=== PATIENT | male | born 1945 | race Two or more races ===

== ENCOUNTER → 2018-08-22 | Outpatient (REF) | payer OTHER ==
[~2018-08-22] MED LIST: BENAZEPRIL
== END ==
LOC: ZZSENDIN 12:55
PROVIDERS: ATTEND Family Medicine
DX: Z01.818 Encounter for other preprocedural examination (principal)
CPT/HCPCS: 81001

== ENCOUNTER 2018-09-30 00:22 | Observation (INO) | payer MEDICARE, OTHER ==
[2018-09-29 14:41] LABS: INR 0.98
[~2018-09-30] VITALS: Ht 167.6 cm; Wt 89.8 kg
[2018-09-30] VITALS (11 sets, daily range): BP systolic 113–148; BP diastolic 71–96
[~2018-09-30 00:22] MED LIST changes: +BENA20TA64 PO
--- NOTE | 2018-09-30 03:55 | LEVENE H&P ---
DATE OF ADMISSION: September 30, 2018 IDENTIFICATION/CHIEF COMPLAINT Tramaine is a 73-year-old gentleman with a history of a left knee tibial plateau fracture. He has gone on to develop severe post-traumatic arthritis. Surgery is indicated at this time to relieve symptoms after failure of nonoperative measures. PAST MEDICAL HISTORY Notable for hypercholesterolemia, hypertension, controlled on medication. ALLERGIES He has no known drug allergies. CURRENT MEDICATIONS 1. Simvastatin 20 mg p.o. daily. 2. Spironolactone 50 mg p.o. daily. 3. Carvedilol 12.5 mg p.o. daily. 4. Benazepril 40 mg p.o. daily. PAST SURGICAL HISTORY Notable for a left knee operation. He also has a history of a kidney artery stent bilaterally. FAMILY HISTORY Notable for a father with AK, a mother with diabetes, and a brother with cancer. SOCIAL HISTORY Notable for smoking a half a pack of cigarettes for about five years. He quit 30 years ago. He drinks alcohol occasionally, beer. He denies abuse. REVIEW OF SYSTEMS Noncontributory. PHYSICAL EXAMINATION GENERAL: This is a well-developed, well-nourished male who appears stated age. HEENT: He is normocephalic, atraumatic. NECK: Supple. LUNGS: Clear. HEART: Regular. ABDOMEN: Soft. ORTHOPEDIC: The left knee has effusion present. He has crepitus through range of motion. Slight valgus alignment is noted. His knee is stable. Extensor function is intact. Calves nontender. Neurovascular function is intact. Radiographs demonstrate advanced post-traumatic arthritis. ASSESSMENT Left knee end-stage degenerative joint disease, progressively painful and debilitating, refractory to conservative measures. PLAN Tramaine and I discussed the options again, including the option of ongoing conservative care and management, which is safe and reasonable, or the option of surgical treatment. Surgery will consist of a total knee arthroplasty. Nature of this procedure, risks, benefits, and the anticipated rehab course were reviewed, and he would like to proceed. All his questions were answered. Signed permit was placed in the chart. No guarantees were given or implied. MIREYA
[2018-09-30] MEDS ORDERED: PREGABALIN 75 MG CAPSULE PO ONE (06:30)
[2018-09-30] MEDS ORDERED: MIDAZOLAM 2 MG/2 ML VIAL IVP PRN (06:30)
[2018-09-30] MEDS ORDERED: FAMOTIDINE 20 MG TAB PO ONE (06:30)
[2018-09-30] MEDS ORDERED: ACETAMINOPHEN 500 MG TAB PO ONE (06:30)
[2018-09-30] MEDS ORDERED: LIDOCAINE/SOD BICARB 8.4% SYR ID ONE (06:30)
[2018-09-30] MEDS ORDERED: CELECOXIB 200 MG CAP PO ONE (06:30)
[2018-09-30] MEDS ORDERED: NORMOSOL R SOLN(*) 1000 ML BAG 1,000 ML IV PRN ×2 (06:30→13:45)
[2018-09-30] MEDS ORDERED: ceFAZolin(*) 2GM/D5W 50ML 50 ML IVPB ONE (07:30)
[2018-09-30] MEDS ORDERED: TRANEXAMIC AC 1000 MG/10ML SDV 1,000 MG in DEXTROSE 5% 50 ML BAG 50 ML IV ONE (07:30)
[2018-09-30] MEDS ORDERED: ROPIVACAINE/EPI/CLONIDINE/KET 50 ML SYRINGE INJ ONE (07:30)
[2018-09-30] MEDS ORDERED: fentaNYL CITR 100 MCG/2 ML AMP ONE (08:23)
[2018-09-30] MEDS ORDERED: DEXAMETHASONE SOD 4 MG/ML VIAL ONE (08:23)
[2018-09-30] MEDS ORDERED: ONDANSETRON 4 MG/2 ML VIAL ONE (08:23)
[2018-09-30] MEDS ORDERED: PROPOFOL EMUL(*) 10MG/ML 20 ML 20 ML ONE (08:23)
[2018-09-30] MEDS ORDERED: LIDOCAINE MPF 1% 5 ML VIAL ONE (08:23)
[2018-09-30] MEDS ORDERED: KETAMINE HCL-NS 50 MG/5 ML SYR ONE (08:24)
[2018-09-30] MEDS ORDERED: ePHEDrine 25 MG/5 ML DISP.SYR IVP ONE (08:24)
[2018-09-30] MEDS ORDERED: VANCOMYCIN 1 GM VIAL ONE (09:45)
[2018-09-30] MEDS ORDERED: ROCURONIUM BR 10 MG/ML 5 ML SY 5 ML ONE (10:06)
[2018-09-30] MEDS ORDERED: GLYCOPYRROLATE 0.2MG/ML 1 ML INJ ONE (10:17)
--- NOTE | 2018-09-30 13:22 | RADIOLOGY IMAGING REPORT ---
FAC[place] [facility] [place]IENT NAME: Tramaine Qiuros : 1945 MR: [id number] V: [id number] EXAM DATE: ORDERING PHYSICIAN: JONATHAN HOLLAND TECHNOLOGIST: Location: [facility] - [place] Patient: Tramaine Quiros : 1945 Visit/Account:[id number] Date of Sevice: 09/30/2018 KNEE LIMITED LEFT Indication: Postop TKA Comparison: None available Findings: There are postoperative changes from knee replacement. Three part TKA demonstrates good seating of t he components with neutral alignment. IMPRESSION: 1. Unremarkable postoperative appearance of left TKA Report Dictated By: Robert Salazar at 09/30/2018 1:15 PM Report E-Signed By: Robert Salazar at 09/30/2018 1:16 PM WSN:[email or web address]
[2018-09-30] MEDS ORDERED: FLUSH 10 ML SYR IVP PRN (13:45)
[2018-09-30] MEDS ORDERED: diphenhydrAMINE 25 MG CAP PO PRN (13:45)
[2018-09-30] MEDS ORDERED: ZOLPIDEM TARTRATE 5 MG TAB PO PRN (13:45)
[2018-09-30] MEDS ORDERED: ACETAMINOPHEN 325 MG TAB PO PRN (13:45)
[2018-09-30] MEDS ORDERED: MAGNESIUM HYDROXIDE* 30ML UDCP PO PRN (13:45)
[2018-09-30] MEDS ORDERED: BENZOCAINE/MENTHOL 1 EACH LOZG PO PRN (13:45)
[2018-09-30] MEDS ORDERED: PROMETHAZINE 25 MG/ML 1 ML AMP IVP PRN (13:45)
[2018-09-30] MEDS ORDERED: DIAZEPAM 5 MG TAB PO PRN (13:45)
[2018-09-30] MEDS ORDERED: BISACODYL 10 MG SUPP PR PRN (13:45)
[2018-09-30] MEDS ORDERED: diphenhydrAMINE 50 MG/ML VIAL IVP PRN (13:45)
--- NOTE | 2018-09-30 14:09 | OPERATIVE REPORT 1 ---
EVENT DATE: September 30, 2018 SURGEON: Dandre Rivera MD ANESTHESIOLOGIST: Preston Turner MD ANESTHESIA: General plus spinal. FIRER ELECTRIC LOCOMOTIVE: Patrice Lopez PA-C PREOPERATIVE DIAGNOSIS Left knee degenerative joint disease, posttraumatic. POSTOPERATIVE DIAGNOSIS Left knee degenerative joint disease, posttraumatic. PROCEDURE PERFORMED Left total knee arthroplasty. ESTIMATED BLOOD LOSS Minimal. DRAINS None. SPECIMENS None. COMPLICATIONS None apparent. TOURNIQUET TIME 44 minutes. IMPLANTS USED Mounika Triathlon knee system, 4 left PS femur, 5 standard tibial baseplate, 33 mm universal symmetric all polyethylene patella button, 13 mm PS tibial tray liner and polyethylene X3. INDICATIONS Tramaine is status post plateau fracture with chronic ORIF and subsequent hardware removal. He has gone on to develop severe posttraumatic arthritis, painful and debilitating and refractory to conservative measures. Surgery is indicated to relieve symptoms after failure of nonoperative measures. DESCRIPTION OF PROCEDURE The patient was taken to the operating room and placed supine on the operating table. Spinal block was administered by the anesthesiologist. General anesthesia was induced. Antibiotics and TXA were administered IV. The left lower extremity was prepped and draped in the usual sterile fashion for knee arthroplasty. The limb was exsanguinated with an Esmarch bandage. The tourniquet was inflated to 250 mmHg. A midline longitudinal incision was made and carried down through the skin and subcutaneous tissue to the extensor mechanism. A full-thickness flap was developed far enough medially to allow medial parapatellar arthrotomy to be performed. The patella was everted. The knee was brought into a flexed position. The fat pad, anterior horns of the menisci and cruciate ligaments were debrided. Subperiosteal release was initiated in titrated fashion at the anterior medial tibia. A step drill was used to enter the distal femur. A 10-inch long alignment guide was used to engage the isthmus. Cut was set for 5 degrees of valgus relative to the anatomic axis. A 10 mm resection block was applied and pinned. Cut was made with an oscillating saw. The AP sizing guide was applied to the distal femoral cut. The size 4 was optimal without risk of notching. The four-in-one cutting block was applied. Anterior, posterior, posterior chamfer and anterior chamfer cuts were made respectively. A PS block was applied and centered mediolateral and the bone was removed from the box. The trial femur has nice [id number] fit. Attention was turned to tibial preparation. The extramedullary guide was applied and positioned for varus, valgus, posterior slope and rotation. This was set to resect the appropriate bone amount. The block was pinned. Extramedullary alignment check was made and the cut was made with an oscillating saw. After osteophyte removal, gaps were balanced and symmetrical. No additional release is required. Size 5 baseplate provides optimum bony coverage without soft tissue overhang. This was inserted along with trial liner and trial femur. Knee cap was taken from a starting thickness of 23 to residual of 14 with patellar clamp and oscillating saw. The 33 provides optimal bony coverage without soft tissue overhang. Lug holes were drilled. The patella tracts nicely with a no-touch technique. Final tibial preparation consisted of ensuring appropriate rotational and translational position of the component. The box was reamed and the fin was punched. Surfaces were lavaged. A mix of polymethylmethacrylate was made and the components were cemented in a single stage. The cement was fully polymerized. The tourniquet was deflated and hemostasis was assured. 13 PS tibial tray liner fills up the gap ideally, allowing the knee to drop to full extension and providing optimal soft tissue tension and stability. The tray was lavaged and dried again. The actual liner was locked into the baseplate. The joint was reduced. The arthrotomy was closed in flexion with #2 Ethibond, subcutaneous tissue with 3-0 Vicryl and the skin with ZipLine closure. Xeroform was applied followed by a dry, sterile dressing and a compression wrap. The patient was awakened from the anesthesia and taken to the recovery room in stable condition, having tolerated the procedure well. Plan is for standard TKA rehab protocol. [facility]
[2018-09-30] MEDS ORDERED: BENA40TA53 PO (14:10)
[2018-09-30] MEDS ORDERED: SIMV-49 PO (14:10)
[2018-09-30] MEDS ORDERED: CARV12.578 PO (14:10)
[2018-09-30] MEDS ORDERED: SPIR25TA80 PO (14:10)
--- NOTE | 2018-09-30 14:24 | NUR ---
Physical Therapy Impression PT eval completed with family members present to assist in teaching with CPM use. Pt notes that B) LE's still feel numb and he would like PT to return later to attempt to stand at edge of bed. Physical Therapy Goals 1. Pt to be CGA/Min assist for bed mobility and supine to/from sit trnsfrs 2. Pt to be SBA/CGA for sit to/from stand transfers 3. Pt to amb x 100' with least restrictive device and SBA/CGA. 4. Pt to dionne up/down 4 steps with rail and SBA/CGA Patient's Goals
--- NOTE | 2018-09-30 15:34 | Hospitalist Progress Note ---
Subjective Progress Notes Subjective No cp/sob. He received 1500cc of crystalloid, TXA and dexamethasone intra-op. Physical Exam Vital Signs Date Time Temp Pulse Resp B/P (MAP) Pulse Ox O2 Delivery O2 Flow Rate FiO2 09/30/18 14:30 78 131/84 (100) 93 09/30/18 14:11 Nasal Cannula 2.0 09/30/18 13:50 98.4 16 General Appearance: Alert, Awake, No Acute Distress Cardiovascular: Regular Rate and Rhythm Respiratory: Clear to Auscultation Extremities: No Edema Assessment and Plan Problems: (1) Status post knee replacement Status: Acute Assessment & Plan: No CV/pulmonary issues after surgery. He denies a h/o of DV T/PE. He will be on ASA 325mg a day for 30 days after surgery for blood clot prevention. (2) HTN (hypertension) Status: Chronic Assessment & Plan: Continue chronic carvedilol, benazepril and spironolactone with parameters. He is supposed to take carvedilol twice daily, but admits to only taking it twice daily. Will give bid in the hospital. (3) Hyperlipemia Status: Chronic Assessment & Plan: Continue chronic simvastatin. Exam Sepsis Risk: No Definite Risk Problem Qualifiers (1) Status post knee replacement: Laterality: left Qualified Codes: Z96.652 - Presence of left artificial knee joint KVEIN GUPTA MD Sep 30, 2018 15:34
--- NOTE | 2018-09-30 16:11 | NUR ---
Physical Therapy Impression Pt completed ambulation to/from BR with use of FWW and CGA. Pt required Min/CGA for supine to/from sit and family members very agreeable to assist as needed. Pt would benefit from further therapy to address safety with use of crutches planned for home use, as well as education regarding progression with flexion using CPM. Physical Therapy Goals 1. Pt to be CGA/Min assist for bed mobility and supine to/from sit trnsfrs 2. Pt to be SBA/CGA for sit to/from stand transfers 3. Pt to amb x 100' with least restrictive device and SBA/CGA. 4. Pt to dionne up/down 4 steps with rail and SBA/CGA Patient's Goals
[2018-09-30] MEDS: CELECOXIB 200 MG CAP PO SCH (17:29)
[2018-09-30] MEDS: ceFAZolin(*) 1 GM VIAL 1 GM in NS(*) 0.9% 100 ML MINI-BAG 100 ML IVPB SCH (17:29)
[2018-09-30] MEDS ORDERED: SIMVASTATIN 20 MG TAB PO SCH (21:00)
[2018-09-30] MEDS: APAP/HYDROCODONE 325/7.5 TAB PO PRN (21:09)
[2018-10-01] MEDS: ceFAZolin(*) 1 GM VIAL 1 GM in NS(*) 0.9% 100 ML MINI-BAG 100 ML IVPB SCH ×2 (01:30→09:38)
[2018-10-01 02:10] VITALS: BP 150/100
[2018-10-01 07:54] VITALS: BP 139/89
[2018-10-01] MEDS: CELECOXIB 200 MG CAP PO SCH (07:59)
[2018-10-01] MEDS ORDERED: ASPIRIN 325 MG TAB PO SCH (09:00)
[2018-10-01] MEDS ORDERED: SPIRONOLACTONE 25 MG TAB PO SCH (09:00)
[2018-10-01] MEDS ORDERED: BENAZEPRIL HCL 20 MG TAB PO SCH (09:00)
[2018-10-01] MEDS ORDERED: CARVEDILOL 6.25 MG TAB PO SCH (09:00)
[2018-10-01 09:17] VITALS: Ht 167.6 cm; Wt 89.8 kg
[2018-10-01] MEDS: APAP/HYDROCODONE 325/7.5 TAB PO PRN (09:36)
[2018-10-01] MEDS ORDERED: ASPI-757 PO (09:44)
--- NOTE | 2018-10-01 09:49 | Hospitalist Progress Note ---
Subjective Progress Notes Subjective S/P L. Knee Replacement. No acute changes overnight. Patient Complains of: Neurological: No: Confusion Cardiovascular: No: Chest Pain, Palpitations Respiratory: No: Shortness of Breath Physical Exam Vital Signs Date Time Temp Pulse Resp B/P (MAP) Pulse Ox O2 Delivery O2 Flow Rate FiO2 10/01/18 07:54 97.6 69 139/89 (106) 93 Nasal Cannula 1.0 10/01/18 02:10 16 Intake and Output 10/01/18 01:02 Intake Total 3780 ml Balance 3780 ml Intake Oral 480 ml IV Total 1700 ml Other 1600 ml # Voids 3 General Appearance: Alert, Awake, No Acute Distress Cardiovascular: Regular Rate and Rhythm Respiratory: No Respiratory Distress Assessment and Plan Problems: (1) Status post knee replacement Status: Acute Assessment & Plan: On Aspirin for anticoagulation. (2) HTN (hypertension) Status: Chronic Assessment & Plan: Continues on chronic carvedilol, benazepril and spironolactone with parameters. (3) Hyperlipemia Status: Chronic Assessment & Plan: Continues on chronic simvastatin. Exam Sepsis Risk: No Definite Risk Problem Qualifiers (1) Status post knee replacement: Laterality: left Qualified Codes: Z96.652 - Presence of left artificial knee joint FELICITAS REEVES Oct 01, 2018 09:49
[2018-10-01] MEDS ORDERED: HYDR-654 PO (09:58)
[2018-10-01 14:15] VITALS: BP 103/70
== END 2018-10-01 10:25 | disposition home or self-care (01) ==
LOC: OR 00:22 → MED 13:45
PROVIDERS: ADMIT Orthopaedic Surgery; ATTEND Orthopaedic Surgery
DX: M17.32 Unilateral post-traumatic osteoarthritis, left knee (principal); I10 Essential (primary) hypertension; E78.00 Pure hypercholesterolemia, unspecified; Z79.01 Long term (current) use of anticoagulants
CPT/HCPCS: 27447; 36415; 36416; 73560; 82948; 85610; 86850; 86900; 86901; 97116; 97161; 97530; A9270; C1713; C1776; G0378; J0690; J1100; J2001; J2250; J2405; J2704; J3010; J3370; J3490; J7060

== ENCOUNTER → 2018-10-10 | Outpatient (CLI) | payer MEDICARE ==
[2018-10-01 09:17] VITALS: BMI 31.9
[~2018-10-10] MED LIST changes: +ASPI-757 PO; +BENA40TA53 PO; +CARV12.578 PO; +HYDR-654 PO; +SIMV-49 PO; +SPIR25TA80 PO
--- NOTE | 2018-10-10 13:36 | RADIOLOGY IMAGING REPORT ---
FACILITY: [facility] PATIENT NAME: Tramaine Quiros : 1945 MR: [id number] V: [id number] EXAM DATE: ORDERING PHYSICIAN: JONATHAN HOLLAND TECHNOLOGIST: Location: [facility] - [place], [place] Patient: Tramaien Quiros : 1945 Visit/Account:[id number] Date of Sevice: 10/10/2018 US VENOGRAM EXTREMITY, BILATERAL Indication: Bilateral leg for 2 weeks following total knee arthroplasty. Procedure: There has been satisfactory grayscale as well as color flow and Doppler waveform analysis of the deep vessels of the right and left lower extremity. Findings: Right side: The common femoral, profunda femoral, superficial femoral, popliteal and infrapopliteal v essels so far as visualized are compressible with grayscale imaging. All these vessels show flow with color Doppler imaging. Following calf compression there is normal directional augmentation of the Do ppler waveform. The proximal right greater saphenous vein is compressible with grayscale imaging and color flow luis sis shows normal flow. The Doppler waveform shows normal directional flow. Left side:The common femoral, profunda femoral, superficial femoral, popliteal and infrapopliteal ves sels so far as visualized are compressible with grayscale imaging. All these vessels show flow with c olor Doppler imaging. Following calf compression there is normal directional augmentation of the Dopp ler waveform. The proximal left greater saphenous vein is compressible with grayscale imaging and color flow analys is shows normal flow. The Doppler waveform shows normal directional flow. IMPRESSION: No findings of deep vein thrombosis involving the right or left lower extremity. Results were called to JONATHAN HOLLAND M.D. At 10/10/2018 1:27 PM by [facility] at time of dictation. Report Dictated By: Ameya Beverly MD at 10/10/2018 1:26 PM Report E-Signed By: Ameya Beverly MD at 10/10/2018 1:28 PM WSN:[email or web address]
== END ==
LOC: RAD 12:16
PROVIDERS: ATTEND Orthopaedic Surgery
DX: M79.605 Pain in left leg (principal); M79.604 Pain in right leg; R22.42 Localized swelling, mass and lump, left lower limb; R22.41 Localized swelling, mass and lump, right lower limb; Z96.652 Presence of left artificial knee joint
CPT/HCPCS: 93970